=== PATIENT | female | born 1930 | race Caucasian/White ===

== ENCOUNTER 2017-10-01 02:20 | Inpatient (IN) | payer MEDICARE ==
[~2017-10-01] VITALS: Ht 152.4 cm; Wt 54.0 kg
[~2017-10-01 02:20] MED LIST: AMLO5TAB2 PO; ASPI-1169 PO; CLON0.5T4 PO; ESCI10TA PO; OLME40TA12 PO; OMEP20CA10 PO
--- NOTE | 2017-10-01 02:21 | NUR ---
PT BIBRA FROM HOME. PT C/O FEELING "LIGHT HEADED GETTING READY FOR BED" SINCE MIDNIGHT. PT AOX3 RR EVEN AND UNLABORED. NO SOB NOTED. NAD NOTED. NO NVD AT THIS TIME. PT NOT DIAPHORETIC. PT GOWNED AND PLACED ON MONITOR WAITING FOR MD GONSALEZ.
--- NOTE | 2017-10-01 02:32 | NUR ---
DR. GALLARDO AT BEDSIDE FOR EVAL.
--- NOTE | 2017-10-01 02:42 | NUR ---
IV STARTED ON LEFT AC 20G, GOOD BLOOD RETURN. BLOOD DRAW SENT TO LAB
[2017-10-01 02:56] LABS: BASOPHILS % (AUTO) 0.2 % (0.0-2.0); EOSINOPHILS # (AUTO) 0.2 /CMM (0.0-0.7); EOSINOPHILS % (AUTO) 1.7 % (0.0-6.0); HEMATOCRIT 36 % (33-45); HEMOGLOBIN 12.1 g/dL (11.5-14.8); LYMPHOCYTES # (AUTO) 0.8 /CMM (0.8-4.8); LYMPHOCYTES % (AUTO) 7.3 % (20.0-44.0); MEAN CORPUSCULAR HEMOGLOBIN 29 PG (26.0-33.0); MEAN CORPUSCULAR HGB CONC 34 g/dl (31.0-36.0); MEAN CORPUSCULAR VOLUME 85 fL (82-100); MONOCYTES # (AUTO) 0.7 /CMM (0.1-1.30); MONOCYTES % (AUTO) 5.9 % (2.0-12.0); NEUTROPHILS # (AUTO) 9.5 /CMM (1.8-8.9); NEUTROPHILS % (AUTO) 84.9 % (43.0-81.0); PLATELET COUNT (AUTO) 90 /CMM (150-450); RDW COEFFICIENT OF VARIATION 14.8 (11.5-15.0); RED BLOOD CELL COUNT(AUTO) 4.21 MIL/uL (4.0-5.2); WHITE BLOOD COUNT (AUTO) 11.2 K/uL (4.3-11.0)
[2017-10-01] MEDS ORDERED: ONDANSETRON HCL/PF 4 MG/2 ML VIAL ONE (02:59)
[2017-10-01] MEDS ORDERED: IV NS 0.9% 1,000 ML BAG IV ONE (03:00)
[2017-10-01] MEDS ORDERED: ONDANSETRON HCL/PF 4 MG/2 ML VIAL IVP ONE (03:00)
--- NOTE | 2017-10-01 03:00 | NUR ---
PT TO CT.
[2017-10-01 03:10] LABS: INR 1.05 (0.87-1.13)
[2017-10-01 03:12] LABS: ALANINE AMINOTRANSFERASE 26 U/L (12-78); ALBUMIN 4.4 g/dL (3.4-5.0); ALKALINE PHOSPHATASE 58 U/L (46-116); ASPARTATE AMINOTRANSFERASE 20 U/L (15-37); BILIRUBIN,DIRECT 0.1 mg/dL (0.0-0.2); BILIRUBIN,TOTAL 0.5 mg/dL (0.2-1.0); CALCIUM, SERUM 9.2 mg/dL (8.5-10.1); CARBON DIOXIDE 21 mmol/L (21-32); CHLORIDE 106 mmol/L (98-107); CREATININE 1.2 mg/dL (0.6-1.3); GLUCOSE 133 mg/dL (74-106); POTASSIUM 3.6 mmol/L (3.5-5.1); SODIUM SERUM 143 mmol/L (136-145); TOTAL PROTEIN, SERUM 8.2 g/dL (6.4-8.2); UREA NITROGEN, BLOOD 26 mg/dL (7-18)
[2017-10-01 03:13] LABS: TROPONIN I 0.017 ng/mL (0.00-0.056)
--- NOTE | 2017-10-01 03:15 | NUR ---
PT RETURNED FROM CT.
--- NOTE | 2017-10-01 03:46 | NUR ---
SON AT BEDSIDE
--- NOTE | 2017-10-01 03:59 | NUR ---
DR. GALLARDO AT BEDSIDE SPEAKING TO PT AND FAMILY REGARDING RESULTS.
[2017-10-01 04:21] LABS: EOSINOPHILS % (MANUAL) 2 % (0-4); LYMPHOCYTES % (MANUAL) 9 % (16-48); MONOCYTES % (MANUAL) 5 % (0-11.0); NEUTROPHILS % (MANUAL) 84 (42-76)
--- NOTE | 2017-10-01 05:39 | NUR ---
ER TALKING TO OLIVA SNOW DNP REGARDING PT ADMISSION.
--- NOTE | 2017-10-01 05:43 | NUR ---
REPORT GIVEN TO AUNG FLEMING FOR TARA
--- NOTE | 2017-10-01 05:50 | NUR ---
MS RN OPENING NOTE RECEIVED REPORT FROM MADELIN FOR PATIENT TRANSFERRING FROM ER. PATIENT ALERT ORIENTED X3. ON ROOM AIR. RESTING COMFORTABLY IN BED. RESPIRATIONS ARE EVEN AND UNLABORED. DENIES ANY PAIN OR SOB AT THIS TIME. IN NO APPARENT DISTRESS OR DISCOMFORT. PATIENT ON TELE MONITOR. SINUS RHYTHM. LAC 20G SALINE LOCK. PATIENT MADE COMFORTABLE IN BED, SAFETY MEASURES IN PLACE, BED IN LOW LOCKED POSITION, SIDE RAILS UP X2, CALL LIGHT WITHIN REACH. WILL ADMIT TO PATIENT PER MD ORDERS AND CONTINUE TO MONITOR.
[2017-10-01 06:00] VITALS: BP 148/72
--- NOTE | 2017-10-01 06:01 | NUR ---
PT TRASNFERRED PER ACLS PROTOCOL TO 325
--- NOTE | 2017-10-01 07:35 | NUR ---
RN CLOSING NOTES PT AWAKE AND ALERT. NO COMPLAINTS OF SOB OR DISTRESS AT THIS TIME. PT HAS A LEFT AC #20 PATENT AND INTACT NO REDNESS OR INFILTRATION NOTED. RESPIRATIONS EVEN AND UNLABORED. NO SOB NOTED AT THIS TIME. SAFETY PRECAUTIONS IN PLACE.CALL LIGHT WITHIN EASY REACH WILL CONTINUE TO MONITOR Addendum: 10/01/17 at 0816 by ARNALOD SHEPARD RN RN NOTES CORRECTION OPENING NOTES
[2017-10-01 08:00] VITALS: BP_SYST 147; BP_SYST 148; BP_DIAS 72; BP_DIAS 73
--- NOTE | 2017-10-01 09:02 | NUR ---
MS RN CLOSING NOTE PATIENT IN BED, ALERT ORIENTED X3. ON ROOM AIR. RESTING COMFORTABLY IN BED. RESPIRATIONS ARE EVEN AND UNLABORED. DENIES ANY PAIN OR SOB AT THIS TIME. IN NO APPARENT DISTRESS OR DISCOMFORT. PATIENT ON TELE MONITOR. SINUS RHYTHM. LAC 20G SALINE LOCK. PATIENT MADE COMFORTABLE IN BED, SAFETY MEASURES IN PLACE, BED IN LOW LOCKED POSITION, SIDE RAILS UP X2, CALL LIGHT WITHIN REACH. WILL ENDORSE TO AM SHIFT FOR CONTINUITY OF CARE.
[2017-10-01] MEDS ORDERED: HYDROCODONE/APAP 5/325MG 1 EACH TABLET PO PRN (10:30)
[2017-10-01] MEDS ORDERED: ZOLPIDEM TARTRATE 5 MG TABLET PO PRN (10:30)
[2017-10-01] MEDS ORDERED: ONDANSETRON HCL/PF 4 MG/2 ML VIAL IVP PRN (10:30)
[2017-10-01] MEDS ORDERED: Z GUARD REMEDY 2 OZ OINT TP PRN (10:30)
[2017-10-01] MEDS ORDERED: MAG HYDROX/AL HYDROX/SIMETH 30 ML UDC PO PRN (10:30)
[2017-10-01] MEDS ORDERED: MAGNESIUM HYDROXIDE 30 ML UDC PO PRN (10:30)
[2017-10-01] MEDS ORDERED: ENOXAPARIN SODIUM 40 MG/0.4 ML DISP.SYRIN SQ SCH (10:30)
[2017-10-01] MEDS: ENOXAPARIN SODIUM 30 MG/0.3 ML DISP.SYRIN SQ SCH (11:44)
[2017-10-01] MEDS ORDERED: BLOOD SUGAR DIAGNOSTIC 1 EACH STRIP IN SCH (12:00)
[2017-10-01] MEDS: BLOOD SUGAR DIAGNOSTIC 1 EACH STRIP IN SCH ×3 (12:11→21:15)
[2017-10-01 12:28] LABS: INR 1.03 (0.87-1.13)
[2017-10-01 12:32] LABS: TROPONIN I 0.129 ng/mL (0.00-0.056)
[2017-10-01 12:39] LABS: THYROID STIMULATING HORMONE 1.395 uIU/mL (0.358-3.74)
[2017-10-01] MEDS: ACETAMINOPHEN 325 MG TABLET PO PRN (17:12)
--- NOTE | 2017-10-01 18:52 | NUR ---
RN CLOSING NOTES PT AWAKE AND ALERT. NO COMPLAINTS OF SOB OR DISTRESS AT THIS TIME. PT HAS A LEFT AC #20 PATENT AND INTACT NO REDNESS OR INFILTRATION NOTED. RESPIRATIONS EVEN AND UNLABORED. NO SOB NOTED AT THIS TIME. SAFETY PRECAUTIONS IN PLACE.CALL LIGHT WITHIN EASY REACH WILL CONTINUE TO MONITOR AND ENDORSE TO NEXT SHIFT FOR CONTINUITY OF CARE
--- NOTE | 2017-10-01 19:30 | NUR ---
MANAGER STUDY OPENING NOTE RECEIVED PATIENT IN BED, ALERT ORIENTED X3. ON ROOM AIR. RESTING COMFORTABLY IN BED. ABLE TO MAKE NEEDS KNOWN. RESPIRATIONS ARE EVEN AND UNLABORED. DENIES ANY PAIN OR SOB AT THIS TIME. IN NO APPARENT DISTRESS OR DISCOMFORT. PATIENT ON TELE MONITOR. SINUS RHYTHM. LAC 20G SALINE LOCK. PATIENT KEPT CLEAN AND COMFORTABLE, ALL NEEDS ATTENDED , SAFETY MEASURES IN PLACE, BED IN LOW LOCKED POSITION, SIDE RAILS UP X2, CALL LIGHT WITHIN REACH. WILL CONTINUE TO MONITOR.
[2017-10-01 20:00] VITALS: BP 127/76
[2017-10-01] MEDS: clonazePAM 0.5 MG TABLET PO SCH (21:14)
[2017-10-01] MEDS: SIMVASTATIN 40 MG TABLET PO SCH (21:15)
--- NOTE | 2017-10-01 22:00 | NUR ---
ACCU CHECK PERFORMED. PATIENT'S BLOOD SUGAR IS 98MG/DL.
[2017-10-01 23:58] LABS: APPEARANCE,URINE CLEAR (CLEAR); BILIRUBIN,URINE NEGATIVE (NEGATIVE); BLOOD, URINE NEGATIVE Ery/uL (NEGATIVE); COLOR,URINE YELLOW (YELLOW); KETONES,URINE NEGATIVE (NEGATIVE); LEUKOCYTE ESTERASE ,URINE NEGATIVE (NEGATIVE); NITRITE, URINE NEGATIVE (NEGATIVE); PH,URINE 6.5 (5.0-8.0); PROTEIN,URINE NEGATIVE (NEGATIVE); UGLUCOSE NEGATIVE (NEGATIVE); UROBILINOGEN,URINE 0.2 EU/dL (0.2)
[2017-10-02 04:00] VITALS: BP 130/66
--- NOTE | 2017-10-02 07:39 | NUR ---
CORPORATE TAX MANAGER CLOSING NOTE PATIENT SLEEPING COMFORTABLY IN BED, EASILY AROUSED WITH VERBAL STIMULI, ORIENTED X3. ON ROOM AIR. ABLE TO MAKE NEEDS KNOWN. RESPIRATIONS ARE EVEN AND UNLABORED. DENIES ANY PAIN OR SOB AT THIS TIME. IN NO APPARENT DISTRESS OR DISCOMFORT. PATIENT ON TELE MONITOR. SINUS RHYTHM. LAC 20G SALINE LOCK. PATIENT KEPT CLEAN AND COMFORTABLE, ALL NEEDS ATTENDED , SAFETY MEASURES IN PLACE, BED IN LOW LOCKED POSITION, SIDE RAILS UP X2, CALL LIGHT WITHIN REACH. WILL ENDORSE TO AM SHIFT FOR CONTINUATION OF CARE.
--- NOTE | 2017-10-02 07:40 | NUR ---
DEVELOPMENT COACH OPENING NOTE PATIENT IS ALERT AND ORIENTED x4. NO PAIN AT THIS TIME. NO SOB OR DISTRESS NOTED. CALL LIGHT WITHIN REACH. SAFETY MEASURES IMPLEMENTED. ABLE TO COMMUNICATE NEEDS. NO IV FLUIDS AT THIS TIME. IV ON LEFT AC INTACT AND PATENT NO REDNESS OR SWELLING NOTED. ON FREQUENT NEURO CHECKS, BLOOD SUGAR TO BE MONITORED THROUGHOUT SHIFT. ON ROOM AIR WITH 97% O2 SATURATION. AWAITING LAB RESULTS. PENDING CONSULTS. WILL CONTINUE TO MONITOR
[2017-10-02 07:55] LABS: BASOPHILS % (AUTO) 0.4 % (0.0-2.0); EOSINOPHILS # (AUTO) 0.1 /CMM (0.0-0.7); EOSINOPHILS % (AUTO) 2.2 % (0.0-6.0); HEMATOCRIT 33 % (33-45); HEMOGLOBIN 11.2 g/dL (11.5-14.8); LYMPHOCYTES # (AUTO) 0.8 /CMM (0.8-4.8); LYMPHOCYTES % (AUTO) 12.6 % (20.0-44.0); MEAN CORPUSCULAR HEMOGLOBIN 29 PG (26.0-33.0); MEAN CORPUSCULAR HGB CONC 34 g/dl (31.0-36.0); MEAN CORPUSCULAR VOLUME 85 fL (82-100); MONOCYTES # (AUTO) 0.5 /CMM (0.1-1.30); MONOCYTES % (AUTO) 7.1 % (2.0-12.0); NEUTROPHILS % (AUTO) 77.7 % (43.0-81.0); PLATELET COUNT (AUTO) 95 /CMM (150-450); RDW COEFFICIENT OF VARIATION 14.6 (11.5-15.0); RED BLOOD CELL COUNT(AUTO) 3.91 MIL/uL (4.0-5.2); WHITE BLOOD COUNT (AUTO) 6.5 K/uL (4.3-11.0)
[2017-10-02 08:00] VITALS: BP 136/72
[2017-10-02] MEDS: BLOOD SUGAR DIAGNOSTIC 1 EACH STRIP IN SCH ×4 (08:21→21:53)
[2017-10-02] MEDS: clonazePAM 0.5 MG TABLET PO SCH ×2 (08:22→21:53)
[2017-10-02] MEDS: ASPIRIN EC 325 MG TABLET.DR PO SCH (08:22)
[2017-10-02] MEDS: AMLODIPINE BESYLATE 5 MG TABLET PO SCH (08:23)
[2017-10-02] MEDS: ENOXAPARIN SODIUM 30 MG/0.3 ML DISP.SYRIN SQ SCH (08:25)
[2017-10-02] MEDS: PANTOPRAZOLE 40 MG TABLET.DR PO SCH (08:29)
[2017-10-02 08:47] LABS: CALCIUM, SERUM 8.8 mg/dL (8.5-10.1); CARBON DIOXIDE 26 mmol/L (21-32); CHLORIDE 112 mmol/L (98-107); GLUCOSE 90 mg/dL (74-106); PHOSPHORUS 3.4 mg/dL (2.5-4.9); POTASSIUM 4.1 mmol/L (3.5-5.1); SODIUM SERUM 147 mmol/L (136-145); UREA NITROGEN, BLOOD 16 mg/dL (7-18)
[2017-10-02] MEDS ORDERED: OLMESARTAN 40 MG PO SCH (09:00)
[2017-10-02 10:03] LABS: EOSINOPHILS % (MANUAL) 5 % (0-4); LYMPHOCYTES % (MANUAL) 13 % (16-48); MONOCYTES % (MANUAL) 6 % (0-11.0); NEUTROPHILS % (MANUAL) 76 (42-76)
[2017-10-02 16:00] VITALS: BP 154/97
[2017-10-02] MEDS ORDERED: IOHEXOL-350 100 ML VIAL IV ONE (16:16)
[2017-10-02] MEDS ORDERED: IV NS 0.9% 250 ML IV ONE (16:16)
--- NOTE | 2017-10-02 18:25 | NUR ---
MS RN CLOSING NOTE PATIENT IS ALERT AND ORIENTED X4. NO PAIN AT THIS TIME. NO SOB OR DISTRESS NOTED. CALL LIGHT WITHIN REACH AT ALL TIMES. SAFETY MEASURES IMPLEMENTED. ABLE TO COMMUNICATE NEEDS. IV INTACT AND PATENT NO FLUIDS RUNNING AT THIS TIME. ALL MEDICATIONS GIVEN ORDERED BY MD. ALL NURSING CARE NEEDS ATTENDED TO NEEDED. ALL TESTING DONE. PT, OT AND NEURO CONSULT DONE. ON ROOM AIR TOLERATING WELL ON 02 SATURATION OF 98%. BLOOD SUGAR MONITORED THROUGHOUT SHIFT. WILL ENDORSE TO DIET CONSULTANT NURSE FOR TARA
--- NOTE | 2017-10-02 19:40 | NUR ---
MS RN OPENING NOTES RECEIVED PT IN BED AWAKE, ALERT, VERBALLY RESPONSIVE, ON ROOM AIR, RESPIRATIONS EVEN, UNLABORED, NO APPARENT DISTRESS NOTED. DENIES ANY PAIN OR DISCOMFORT AT THIS TIME. IV SITE LAC INTACT, PATENT. CALL LIGHT WITHIN REACH. WILL CONTINUE TO MONITOR ACCORDINGLY.
[2017-10-02 20:32] VITALS: BP 150/75
[2017-10-02] MEDS: SIMVASTATIN 40 MG TABLET PO SCH (21:53)
[2017-10-02 22:00] VITALS: BP 144/76
[2017-10-03] MEDS: BLOOD SUGAR DIAGNOSTIC 1 EACH STRIP IN SCH ×2 (06:31→12:36)
--- NOTE | 2017-10-03 06:56 | NUR ---
MS RN CLOSING NOTES PT IN BED, RESTING COMFORTABLY, NOTED IV PULLED OUT, PT REFUSED IV TO BE INSERTED, OFFERED X3, EXPLAINED BENEFITS, REFUSED, DENIESANY PAIN OR DISCOMFORT AT THIS TIME. CALL LIGHT WITHIN REACH. WILL CONTINUE TO MONITOR ACCORDINGLY.
[2017-10-03 08:00] VITALS: BP 137/58
--- NOTE | 2017-10-03 08:09 | NUR ---
RN OPENING NOTES RECEIVED PATIENT AWAKE ALERT AND VERBALLY RESPONSIVE, ABLE TO MAKE NEEDS KNOWN. RESPIRATIONS EVEN AND UNLABORED, NO DISTRESS NOTED. DENIES ANY PAIN OR DISCOMFORT AT THIS TIME. NO IV ACCESS MD AWARE. KEPT CLEAN DRY AND COMFORTABLE, CALL LIGHT WITHIN EASY REACH WILL CONTINUE TO MONITOR
[2017-10-03 08:12] LABS: BASOPHILS % (AUTO) 0.1 % (0.0-2.0); EOSINOPHILS # (AUTO) 0.2 /CMM (0.0-0.7); EOSINOPHILS % (AUTO) 2.4 % (0.0-6.0); HEMATOCRIT 34 % (33-45); HEMOGLOBIN 11.8 g/dL (11.5-14.8); LYMPHOCYTES # (AUTO) 0.6 /CMM (0.8-4.8); LYMPHOCYTES % (AUTO) 8.7 % (20.0-44.0); MEAN CORPUSCULAR HEMOGLOBIN 29 PG (26.0-33.0); MEAN CORPUSCULAR HGB CONC 35 g/dl (31.0-36.0); MEAN CORPUSCULAR VOLUME 84 fL (82-100); MONOCYTES # (AUTO) 0.5 /CMM (0.1-1.30); MONOCYTES % (AUTO) 7.3 % (2.0-12.0); NEUTROPHILS # (AUTO) 5.5 /CMM (1.8-8.9); NEUTROPHILS % (AUTO) 81.5 % (43.0-81.0); PLATELET COUNT (AUTO) 88 /CMM (150-450); RDW COEFFICIENT OF VARIATION 14.6 (11.5-15.0); RED BLOOD CELL COUNT(AUTO) 4.07 MIL/uL (4.0-5.2); WHITE BLOOD COUNT (AUTO) 6.7 K/uL (4.3-11.0)
[2017-10-03 08:22] LABS: CALCIUM, SERUM 8.9 mg/dL (8.5-10.1); CARBON DIOXIDE 26 mmol/L (21-32); CHLORIDE 110 mmol/L (98-107); CREATININE 1.1 mg/dL (0.6-1.3); GLUCOSE 93 mg/dL (74-106); MAGNESIUM 1.9 mg/dL (1.8-2.4); PHOSPHORUS 3.6 mg/dL (2.5-4.9); SODIUM SERUM 147 mmol/L (136-145); UREA NITROGEN, BLOOD 19 mg/dL (7-18)
[2017-10-03] MEDS ORDERED: ESCITALOPRAM OXALATE (10 MG) 10 MG TABLET PO SCH (09:00)
[2017-10-03] MEDS ORDERED: LOSARTAN POTASSIUM 50 MG TABLET PO SCH (09:00)
[2017-10-03] MEDS: PANTOPRAZOLE 40 MG TABLET.DR PO SCH (09:00)
[2017-10-03] MEDS: AMLODIPINE BESYLATE 5 MG TABLET PO SCH (09:01)
[2017-10-03] MEDS: ASPIRIN EC 325 MG TABLET.DR PO SCH (09:01)
[2017-10-03] MEDS: clonazePAM 0.5 MG TABLET PO SCH (09:01)
[2017-10-03] MEDS: ENOXAPARIN SODIUM 30 MG/0.3 ML DISP.SYRIN SQ SCH (09:03)
[2017-10-03 10:06] LABS: EOSINOPHILS % (MANUAL) 2 % (0-4); LYMPHOCYTES % (MANUAL) 9 % (16-48); MONOCYTES % (MANUAL) 9 % (0-11.0); NEUTROPHILS % (MANUAL) 80 (42-76)
[2017-10-03] MEDS: ACETAMINOPHEN 325 MG TABLET PO PRN (12:39)
[2017-10-03] MEDS ORDERED: ATOR40TA PO (14:51)
[2017-10-03 16:00] VITALS: BP 119/76
--- NOTE | 2017-10-03 19:00 | NUR ---
RN NOTES: RECEIVED ASLEEP ON BED, LYING COMFORTABLY, A/OX1,HARD OF HEARING, ON O2 AT 3L/MIN VIA NC,NO SOB OR SIGN OF RESPIRATORY DISTRESS NOTED,NO PAIN OR DISCOMFORT AT THIS TIME, S/P LEFT ANKLE ORIF 10/02/17, NWB ON LLE, PER ENDORSEMENT SHE RECEIVED ATIVAN AT AROUND 0937 AND STARTED TO SLEEP PASS 1400; ON IVF ON NS AT 60ML/HR VIA IV PUMP, LEFT WRIST#24 INTACT, MORALES CATH DRAINING WELL INTO YELLOWISH COLORED URINE AT 150CC LEVEL,HIGH RISK FOR FALL; FALL,SAFETY AND ASPIRATION PRECAUTION OBSERVED, BED LOW AND LOCKED, CALL LIGHT KEPT WITHIN EASY REACH.KEPT ON CLOSE WATCH. Addendum: 10/03/17 at 2031 by DENNISE FLOREZ RN WRONG ENTRY OF CHARTING.
--- NOTE | 2017-10-03 20:18 | NUR ---
TANK TRUCK MECHANIC NOTES PATIENT AWAKE ALERT AND VERBALLY RESPONSIVE, ABLE TO MAKE NEEDS KNOWN. RESPIRATIONS EVEN AND UNLABORED, NO DISTRESS NOTED. DENIES ANY PAIN OR DISCOMFORT AT THIS TIME. IV ACCESS AND ID BAND REMOVED WITH NO ASE NOTED, DISCHARGE ORDERS, ALL DISCHARGE ORDERS REVIEWED WITH PT AND SON WITH VERBAL UNDERSTANDING NOTED, DISCHARGED IN STABLE CONDITION, NO SKIN ISSUES NOTED
== END 2017-10-03 16:45 | disposition home or self-care (01) | DRG 64 ==
LOC: ER 02:21 → TELE 05:03 → MED 10-02 09:41
PROVIDERS: ADMIT Emergency Medicine; ATTEND Emergency Medicine
DX: I63.232 Cerebral infarction due to unspecified occlusion or stenosis of left carotid arteries (principal); I21.A1 Myocardial infarction type 2; D72.829 Elevated white blood cell count, unspecified; E78.5 Hyperlipidemia, unspecified; F32.9 Major depressive disorder, single episode, unspecified; K21.9 Gastro-esophageal reflux disease without esophagitis; I25.10 Atherosclerotic heart disease of native coronary artery without angina pectoris; R29.700 NIHSS score 0; Z88.0 Allergy status to penicillin; Z88.2 Allergy status to sulfonamides; N18.9 Chronic kidney disease, unspecified; I12.9 Hypertensive chronic kidney disease with stage 1 through stage 4 chronic kidney disease, or unspecified chronic kidney disease; Z90.710 Acquired absence of both cervix and uterus; Z95.2 Presence of prosthetic heart valve; G83.11 Monoplegia of lower limb affecting right dominant side
CPT/HCPCS: 36415; 70450-TC; 70498-TC; 70551-TC; 71045-TC; 80048-TC; 80061-TC; 80076-TC; 80305; 81000-TC; 82746; 82962-TC; 83540-TC; 83735-TC; 83880; 84100-TC; 84443-TC; 84484-TC; 85025-TC; 85610-TC; 85652-TC; 85730-TC; 87081-TC; 87086-TC; 92611-TC; 93307-TC; 93880-TC; A4606; J1650; J2405; J7030; J7050; Q9967; Z7610

== ENCOUNTER 2019-08-05 17:27 | Inpatient (IN) | payer MEDICARE ==
[~2019-08-05] VITALS: Ht 152.4 cm; Wt 54.0 kg
[~2019-08-05 17:27] MED LIST changes: -AMLO5TAB2 PO; +AMLO5TAB9 PO; +ATOR40TA PO; -OMEP20CA10 PO; +OMEP20CA15 PO
--- NOTE | 2019-08-05 18:18 | NUR ---
patient arrived at unit. reported "was in UC this pm was advised to come in my hand/fingers have been feeling weak since 1pm yesterday but became worse today-cant use as much". resting on bed. will continue to monitor accordingly
--- NOTE | 2019-08-05 19:32 | NUR ---
REPORT GIVEN TO DEVONTE HORAN FOR TARA
--- NOTE | 2019-08-05 20:24 | NUR ---
BLOOD DRAWN AND SENT TO LAB FOR TESTING
--- NOTE | 2019-08-05 20:51 | NUR ---
PATIENT SENT TO CT
[2019-08-05 20:54] LABS: BASOPHILS # (AUTO) 0.1 /CMM (0.0-0.2); BASOPHILS % (AUTO) 0.7 % (0.0-2.0); EOSINOPHILS % (AUTO) 2.9 % (0.0-6.0); HEMATOCRIT 34 % (33-45); HEMOGLOBIN 11.2 g/dL (11.5-14.8); LYMPHOCYTES # (AUTO) 0.9 /CMM (0.8-4.8); LYMPHOCYTES % (AUTO) 12.2 % (20.0-44.0); MEAN CORPUSCULAR HGB CONC 33 g/dl (31.0-36.0); MEAN CORPUSCULAR VOLUME 84 fL (82-100); MONOCYTES # (AUTO) 0.5 /CMM (0.1-1.30); MONOCYTES % (AUTO) 7.2 % (2.0-12.0); NEUTROPHILS # (AUTO) 5.6 /CMM (1.8-8.9); PLATELET COUNT (AUTO) 103 /CMM (150-450); RED BLOOD CELL COUNT(AUTO) 3.98 MIL/uL (4.0-5.2); WHITE BLOOD COUNT (AUTO) 7.3 K/uL (4.3-11.0)
[2019-08-05] MEDS ORDERED: IV NS 0.9% 1,000 ML BAG IV ONE (21:00)
--- NOTE | 2019-08-05 21:06 | NUR ---
PATIENT RETURNED FROM CT
[2019-08-05 21:13] LABS: CALCIUM, SERUM 9.4 mg/dL (8.5-10.1); CREATININE 1.1 mg/dL (0.6-1.3); POTASSIUM 4.5 mmol/L (3.5-5.1)
--- NOTE | 2019-08-05 21:16 | NUR ---
DR BLAKE CALLED FOR PANEL AND NURSING SUP CALLED FOR TELE BED
[2019-08-05 21:18] LABS: ALBUMIN 3.8 g/dL (3.4-5.0); BILIRUBIN,DIRECT 0.1 mg/dL (0.0-0.2); BILIRUBIN,TOTAL 0.4 mg/dL (0.2-1.0); TOTAL PROTEIN, SERUM 7.2 g/dL (6.4-8.2)
[2019-08-05] MEDS ORDERED: ASPIRIN 81 MG TAB.CHEW ONE (21:27)
[2019-08-05] MEDS ORDERED: ASPIRIN 81 MG TAB.CHEW PO ONE (21:30)
--- NOTE | 2019-08-05 21:38 | NUR ---
DR. BLAKE AT BEDSIDE SPEAKING W/ PATIENT
--- NOTE | 2019-08-05 21:45 | NUR ---
BED ASSIGNMENT 104
--- NOTE | 2019-08-05 21:55 | NUR ---
REPORT GIVEN TO HILARIO HORAN FOR ATRA.
[2019-08-05] MEDS ORDERED: ENOXAPARIN SODIUM 40 MG/0.4 ML DISP.SYRIN SQ ONE (22:00)
[2019-08-05] MEDS ORDERED: SIMVASTATIN 40 MG TABLET PO SCH (22:00)
[2019-08-05] MEDS ORDERED: hydrALAZINE HCL IV 20 MG VIAL IV PRN (22:00)
--- NOTE | 2019-08-05 22:15 | NUR ---
ULTRASOUND AT BEDSIDE
[2019-08-05 23:04] VITALS: BP 155/87
[2019-08-05] MEDS ORDERED: SIMVASTATIN 20 MG TABLET ONE (23:51)
[2019-08-05] MEDS: BLOOD SUGAR DIAGNOSTIC 1 EACH STRIP IN SCH (23:52)
[2019-08-06] VITALS (7 sets, daily range): BP systolic 140–164; BP diastolic 54–86
[2019-08-06] MEDS ORDERED: BLOOD SUGAR DIAGNOSTIC 1 EACH STRIP IN SCH
[2019-08-06 06:21] LABS: BASOPHILS % (AUTO) 0.5 % (0.0-2.0); EOSINOPHILS % (AUTO) 4.5 % (0.0-6.0); HEMATOCRIT 33 % (33-45); HEMOGLOBIN 10.9 g/dL (11.5-14.8); LYMPHOCYTES # (AUTO) 0.8 /CMM (0.8-4.8); LYMPHOCYTES % (AUTO) 10.6 % (20.0-44.0); MEAN CORPUSCULAR HGB CONC 33 g/dl (31.0-36.0); MEAN CORPUSCULAR VOLUME 84 fL (82-100); MONOCYTES # (AUTO) 0.6 /CMM (0.1-1.30); MONOCYTES % (AUTO) 7.8 % (2.0-12.0); NEUTROPHILS # (AUTO) 5.8 /CMM (1.8-8.9); NEUTROPHILS % (AUTO) 76.6 % (43.0-81.0); PLATELET COUNT (AUTO) 111 /CMM (150-450); RED BLOOD CELL COUNT(AUTO) 3.97 MIL/uL (4.0-5.2); WHITE BLOOD COUNT (AUTO) 7.5 K/uL (4.3-11.0)
[2019-08-06 06:46] LABS: POTASSIUM 4.4 mmol/L (3.5-5.1)
[2019-08-06 06:56] LABS: THYROID STIMULATING HORMONE 2.262 uIU/mL (0.358-3.74)
[2019-08-06 06:58] LABS: ALBUMIN 3.4 g/dL (3.4-5.0); BILIRUBIN,TOTAL 0.3 mg/dL (0.2-1.0); TOTAL PROTEIN, SERUM 6.6 g/dL (6.4-8.2)
[2019-08-06] MEDS: BLOOD SUGAR DIAGNOSTIC 1 EACH STRIP IN SCH ×4 (07:42→21:15)
--- NOTE | 2019-08-06 07:43 | NUR ---
RN OPENING NOTES RECEIVED PATIENT RESTING IN BED COMFORTABLY, DENIES ANY SOB OR PAIN AT THIS TIME. SHE IS AOX4, VERBAL, AND AMBULATORY WITH ASSIST. SHE IS ON RA, TOLERATING WELL, NO S/SX OF RESP DISTRESS OR SOB. TELE MONITOR SHOWING SR, HP IN THE 60S. SKIN IS INTACT, NO WOUNDS PRESENT. EYES ARE PERRLA, FACE IS SYMMETRICAL, PT HAS EQUAL STRENGTH IN BOTH EXTREMITIES. SHE IS ON MECHANICAL SOFT DIET. LAC 20 G IS PATENT AND INTACT, NO IVF AT THIS TIME. SAFETY MEASURES HAVE BEEN IMPLEMENTED, CALL LIGHT IS WITHIN REACH, BED IS IN LOWEST AND LOCKED POSITION, SIDE RAILS UP X2, WILL CONTINUE TO MONITOR FOR ANY CHANGES.
[2019-08-06] MEDS: ASPIRIN EC 325 MG TABLET.DR PO SCH (08:27)
[2019-08-06] MEDS ORDERED: GADOTERIDOL 279.3 MG/ML VIAL IV ONE (11:00)
--- NOTE | 2019-08-06 11:46 | NUR ---
Social Service consult requested by Dr. Whalen for possible stroke. Per Dr. Whalen's H&P, Pt. is a 89-year-old female who presented to the emergency room for evaluation of right upper extremity weakness. According to the patient symptoms started yesterday morning. Patient reports the weakness somehow improved however still weak on the right fingers. Patient otherwise denies any facial problems. Patient also reports for generalized weakness especially when she was walking her dog. Patient has previous history of stroke 2 years ago. Patient also had left-sided carotid stenosis. SW met with the pt. bedside for an assessment. Pt. is alert and oriented x 4. Pt. is very pleasant and cooperative with SW. Pt. was sitting upright on her bed watching TV. Pt. lives with her son Delfino at [address] in [place], [place]. Delfino is her emergency contact and can be reached at . Pt. also has a dog named " Roro" that resides with her. Pt. had a history of CVA in 2018. Pt. states she was independent and is currently independent with all her ADL's. Pt. has some weakness in her right hand. SW completed the PHQ-9 assessment and pt. scored a 2. Pt. stated," I get sad sometimes, but nothing serious." Pt. is an avid reader and continues to enjoy reading and watching TV. Pt. denies any suicidal ideations and informed SW, " I am trying to live as long as I can." Pt. has great family support from her son Delfino, who resides with her. Pt. was provided with post stroke educational material, " Empowerment after a Stroke." SW provided pt. with active listening and supportive counseling. No other social service needs are requested at this time. SW is available, if needed.
--- NOTE | 2019-08-06 18:52 | NUR ---
RN NOTES PATIENT IS RESTING COMFORTABLY IN BED, DOES NO SHOW ANY S/SX OF RESP DISTRESS, STROKE, OR PAIN. SHE DENIES ANY DISCOMFORT AT THIS TIME. NO ACUTE CHANGES OCCURRED THROUGHOUT THE SHIFT, VITAL SIGNS ARE STABLE, PT NEEDS HAVE BEEN MET. SAFETY MEASURES HAVE BEEN IMPLEMENTED, CALL LIGHT IS WITHIN REACH, BED IS IN LOWEST AND LOCKED POSITION, SIDE RIALS UP X2, WILL ENDORSE TO NIGHTSHIFT RN FOR CONTINUITY OF CARE.
--- NOTE | 2019-08-06 19:05 | NUR ---
RN OPENING NOTES: RECEIVED PATIENT RESTING IN BED, A/O X4. NO SOB NOTED. NO COMPLAIN OF PAIN. CALL LIGHT WITHIN REACH. BED ALARM ON. BED IN LOWEST AND LOCKED POSITION.
--- NOTE | 2019-08-06 21:20 | NUR ---
BLOOD SUGAR FINGERSTICK IS 98. NO INSULIN GIVEN.
[2019-08-06] MEDS ORDERED: SIMVASTATIN 20 MG TABLET PO SCH (22:00)
[2019-08-07] VITALS: BP 145/90
[2019-08-07 04:00] VITALS: BP 155/77
--- NOTE | 2019-08-07 05:48 | NUR ---
RN CLOSING NOTES: PATIENT IS ASLEEP AT THIS TIME. NO ACUTE EVENTS OVERNIGHT. NO COMPLAIN OF PAIN DURING SHIFT. VITALS STABLE. AFEBRILE. AMBULATORY. CALL LIGHT WITHIN REACH. BED ALARM ON. BED IN LOWEST AND LOCKED POSITION.
[2019-08-07 06:45] LABS: BASOPHILS % (AUTO) 0.6 % (0.0-2.0); EOSINOPHILS % (AUTO) 3.7 % (0.0-6.0); HEMATOCRIT 33 % (33-45); HEMOGLOBIN 10.8 g/dL (11.5-14.8); LYMPHOCYTES # (AUTO) 0.6 /CMM (0.8-4.8); LYMPHOCYTES % (AUTO) 9.7 % (20.0-44.0); MEAN CORPUSCULAR HGB CONC 33 g/dl (31.0-36.0); MEAN CORPUSCULAR VOLUME 84 fL (82-100); MONOCYTES # (AUTO) 0.5 /CMM (0.1-1.30); MONOCYTES % (AUTO) 7.6 % (2.0-12.0); NEUTROPHILS # (AUTO) 5.2 /CMM (1.8-8.9); NEUTROPHILS % (AUTO) 78.4 % (43.0-81.0); PLATELET COUNT (AUTO) 84 /CMM (150-450); RED BLOOD CELL COUNT(AUTO) 3.89 MIL/uL (4.0-5.2); WHITE BLOOD COUNT (AUTO) 6.6 K/uL (4.3-11.0)
--- NOTE | 2019-08-07 07:28 | NUR ---
RN OPENING NOTES RECEIVED PATIENT RESTING IN BED COMFORTABLY, SHE DENIES ANY SOB OR PAIN AT THIS TIME. SHE IS AOX4, VERBAL, AND AMBULATORY. SHE IS ON RA, TOLERATING WELL, NO S/SX OF RESP DISTRESS. SKIN IS INTACT, NO WOUNDS PRESENT. SHE IS ON MECHANICAL SOFT DIET, TOLERATING WELL. LAC 20 G SL IS PATENT AND INTACT. SAFETY MEASURES HAVE BEEN IMPLEMENTED, CALL LIGHT IS WITHIN REACH, BED IS IN LOWEST AND LOCKED POSITION, SIDE RAILS UP X2, WILL CONTINUE TO MONITOR FOR ANY CHANGES.
[2019-08-07 07:30] LABS: CALCIUM, SERUM 8.8 mg/dL (8.5-10.1); MAGNESIUM 1.7 mg/dL (1.8-2.4); PHOSPHORUS 3.8 mg/dL (2.5-4.9); POTASSIUM 4.9 mmol/L (3.5-5.1)
[2019-08-07] MEDS: BLOOD SUGAR DIAGNOSTIC 1 EACH STRIP IN SCH ×2 (07:50→11:35)
[2019-08-07 08:00] VITALS: BP 165/79
[2019-08-07] MEDS ORDERED: hydrALAZINE HCL IV 20 MG VIAL IV ONE (08:30)
[2019-08-07] MEDS: ASPIRIN EC 325 MG TABLET.DR PO SCH (08:36)
[2019-08-07] MEDS ORDERED: VALSARTAN 80 MG TABLET PO SCH (09:00)
[2019-08-07] MEDS: Magnesium 1GM/D5W 100ML PREMIX 100 ML IV SCH ×2 (09:22→10:29)
[2019-08-07 10:25] LABS: EOSINOPHILS % (MANUAL) 3 % (0-4); LYMPHOCYTES % (MANUAL) 10 % (16-48); MONOCYTES % (MANUAL) 3 % (0-11.0); NEUTROPHILS % (MANUAL) 84 (42-76)
[2019-08-07 12:00] VITALS: BP 157/77
--- NOTE | 2019-08-07 15:00 | NUR ---
RN CLOSING NOTES PATIENT HAS BEEN DISCHARGED FROM THE UNIT. SHE LEFT IN STABLE CONDITION. IV SITE WAS REMOVED, BELONGINGS WERE CHECKED OFF, WRIST BAND WAS CUT OFF. EXIT CARE WAS UTILIZED DURING DC PROCESS. PT VERBALIZED UNDERSTANDING OF DISCHARGED TEACHING. SHE LEFT THE UNIT VIA WHEELCHAIR AND LEFT IN PRIVATE CAR ACCOMPANIED BY CECIL ANAYA
== END 2019-08-07 14:44 | disposition home or self-care (01) | DRG 65 ==
LOC: ER 17:34 → TELE1 21:57
PROVIDERS: ADMIT Internal Medicine; ATTEND Nurse Practitioner Acute Care
DX: I63.9 Cerebral infarction, unspecified (principal); G81.91 Hemiplegia, unspecified affecting right dominant side; I10 Essential (primary) hypertension; I25.10 Atherosclerotic heart disease of native coronary artery without angina pectoris; R29.700 NIHSS score 0; Z86.73 Personal history of transient ischemic attack (TIA), and cerebral infarction without residual deficits; E78.5 Hyperlipidemia, unspecified; Z90.710 Acquired absence of both cervix and uterus; Z82.49 Family history of ischemic heart disease and other diseases of the circulatory system; Z95.2 Presence of prosthetic heart valve; Z88.0 Allergy status to penicillin; Z88.2 Allergy status to sulfonamides; Z79.82 Long term (current) use of aspirin; Z79.899 Other long term (current) drug therapy; I65.23 Occlusion and stenosis of bilateral carotid arteries; K21.9 Gastro-esophageal reflux disease without esophagitis; Z91.81 History of falling; I35.0 Nonrheumatic aortic (valve) stenosis; I07.1 Rheumatic tricuspid insufficiency; D69.6 Thrombocytopenia, unspecified; D64.9 Anemia, unspecified; Z96.698 Presence of other orthopedic joint implants
CPT/HCPCS: 36415; 70450-TC; 70553-TC; 71045-TC; 80048-TC; 80053-TC; 80061-TC; 80076-TC; 82962-TC; 83690-TC; 83735-TC; 83880; 84100-TC; 84443-TC; 84484-TC; 85025-TC; 85652-TC; 85730-TC; 87081-TC; 92611-TC; 93307-TC; 93880-TC; 97116-TC; 97530-TC; A9579; G0378; J0360; J1650; J3475; J7050